=== PATIENT | female | born 1965 | race Caucasian/White ===

== ENCOUNTER 2025-07-19 08:22 | Outpatient (REF) | payer OTHER, SELFPAY ==
--- OUTSIDE RECORDS SUMMARY | 2016-11-19 01:00 | XMS_ITS | Encounter Summary ---
Author Organization [facility] Address [address] [place] [id number] Phone Care Team Providers [employer] Name Role Phone Quang Blake MD Primary Care Provider [phone] Encounter Details Date Type Department Care Team (Late st Contact Info) Description 11/19/2016 Hospital Encounter [facility] [address] [place] [address] Stephane Montes MD [address] [facility] [address] [place] [address] [email or web address] Social History Tobacco Use Types Packs/Day Years Used Date Smoking Tobacco: Every Day Cigarettes Comments:Quit smokin06/14 Education Answer Date Recorded Are you interested in more education? Not on jay e 02/12/2023 Are you concerned about learning? Not on file 02/12/2023 No 02/12/2023 No 02/12/2023 Digital Access Answer Date Recorded No 03/10/2023 No 03/10/2023 No 03/10/2023 Reliable internet access at home? Not on file 03/10/2023 Device with a working camera? Not on file Comments Unknown Sex and Gender Information Value Date Recorded Sex Assigned at Not on file Legal Sex Female 2:30 PM EST Gender Identity Not on file Sexual Orientation Not on file documented as of this encounter Plan of Treatment Not on file documented as of this encounter Procedures Procedure Name Priority Date/Time Associated Diagnosis Comments CT SPINE (BONE) OUTSIDE (NO INTERPRETATION) Routine 11/19/2016 12:00 AM EST documented in this encounter Results * CT Spine (Bone) Focus Outside (No Interpretation) (11/19/2016 12:00 AM EST) Narrative [facility] INTERFACES - 11/25/2016 1:16 PM EST This study is for PACS storage only and not for interpretation. us Stephane Montes MD IMG OUTSIDE IMAGING W/ OUT INTERPRETATION Final Result [facility] documented in this encounter Visit Diagnoses Not on filedocumented in this encounter Care Teams [employer] Relationship Specialty Start Date End Date Quang Blake MD [address] [place] [address] PCP - General Internal Medicine 12/06/14 10/13/17 documented as of this encounter Additional Source Comments The information contained in this document represents components of the legal health record. It is not the complete legal health record.[facility]
--- OUTSIDE RECORDS SUMMARY | 2025-07-20 08:39 | XMS_ITS ---
Author Name [facility] Organization Unknown History of Medication Use Medication Directions Dispensed Refills Start Date End Date Status prednisone 10 mg tablet 3 tabs QD x 4 days, 2 tabs QD x 4 days, 1 tab QD x 4 days 5 active Kenalog 40 mg/mL suspension for injection Take 1 mL by injection route. 3 active lidocaine (PF) 10 mg/mL (1 %) injection solution Take 2 mL by injection route. 3 active cephalexin 500 mg capsule TAKE ONE CAPSULE BY MOUTH THREE TIMES A DAY 05/18/20 23 completed doxycycline hyclate 100 mg capsule TAKE ONE CAPSULE BY MOUTH TWICE A DAY 05/18/20 23 completed Codoon COVID-19 Antigen Home Test kit USE DIRECTED PER DIRECTOR [employer] INSTRUCTIONS TO TEST FOR COVID-19 05/18/20 23 active fluticasone propionate 50 mcg/actuation nasal spray,suspension USE 1 SPRAY IN EACH NOSTRIL DAILY NEEDED 05/18/20 23 active nicotine 21 mg/24 hr daily transdermal patch APPLY 1 PATCH TO SKIN DAILY 05/18/20 23 active nitrofurantoin monohydrate/macrocrystal s 100 mg capsule TAKE ONE CAPSULE BY MOUTH EVERY 12 HOURS FOR 5 DAYS 05/18/20 23 completed tizanidine 4 mg tablet TAKE ONE TABLET BY MOUTH THREE TIMES A DAY 05/18/20 23 completed tretinoin 0.025 % topical cream APPLY AT BEDTIME THREE TIMES WEEKLY THEN INCREASE TO NIGHTLY IF TOLERATED 05/18/20 23 completed Vitamin D3 50 mcg (2,000 unit) capsule TAKE ONE CAPSULE BY MOUTH EVERY DAY 05/18/20 23 completed prednisone 10 mg tablet active acetaminophen 500 mg tablet TAKE TWO TABLETS BY MOUTH EVERY 8 HOURS active albuterol sulfate 2.5 mg/3 mL (0.083 %) solution for nebulization ONE VIAL NEBULIZED EVERY 6 HOURS NEEDED FOR WHEEZING active amlodipine 2.5 mg tablet TAKE ONE TABLET BY MOUTH EVERY DAY active amlodipine 5 mg tablet TAKE ONE TABLET BY MOUTH EVERY DAY active amoxicillin 500 mg capsule TAKE 4 CAPSULES BY MOUTH ONE HOUR PRIOR TO DENTAL APPOINTMENT active amoxicillin 875 mg tablet TAKE ONE TABLET BY MOUTH EVERY 12 HOURS FOR 5 DAYS active amoxicillin 875 mg-potassium clavulanate 125 mg tablet TAKE ONE TABLET BY MOUTH TWICE A DAY FOR 5 DAYS active ampicillin 500 mg capsule TAKE ONE CAPSULE BY MOUTH FOUR TIMES A DAY active Anoro Ellipta 62.5 mcg-25 mcg/actuation powder for inhalation INHALE ONE PUFF INTO THE LUNGS ONCE DAILY active Antacid-Antigas 200 mg-200 mg-20 mg/5 mL oral suspension active aspirin 325 mg tablet,delayed release TAKE ONE TABLET BY MOUTH EVERY DAY active atorvastatin 20 mg tablet TAKE ONE TABLET BY MOUTH EVERY DAY active azithromycin 250 mg tablet TAKE 2 TABLETS ON FIRST DAY , THEN 1 TABLET DAILY FOR 4 DAYS active cefuroxime axetil 250 mg tablet TAKE ONE TABLET BY MOUTH TWICE A DAY active celecoxib 200 mg capsule TAKE ONE CAPSUL E BY MOUTH EVERY DAY active cholecalciferol (vitamin D3) 125 mcg (5,000 unit) capsule TAKE ONE CAPSULE BY MOUTH EVERY DAY active cyclobenzaprine 5 mg tablet TAKE ONE TABLET BY MOUTH THREE TIMES A DAY active docusate sodium 100 mg capsule TAKE ONE CAPSULE BY MOUTH TWICE A DAY NEEDED FOR CONSTIPATION active duloxetine 60 mg capsule,delayed release TAKE ONE CAPSULE BY MOUTH TWICE A DAY active estradiol 0.01% (0.1 mg/gram) vaginal cream USE ONE GRAM VAGINALLY EVERY EVENING AT BEDTIME. USE FOR 14 DAYS THEN DECREASE TO TWICE WEEKLY active estradiol 10 mcg vaginal tablet INSERT ONE TABLET VAGINALLY EVERY OTHER DAY active fluconazole 150 mg tablet TAKE ONE TABLET BY MOUTH ONCE active gabapentin 600 mg tablet TAKE ONE TABLET BY MOUTH THREE TIMES A DAY active gabapentin 800 mg tablet TAKE ONE TABLET BY MOUTH THREE TIMES A DAY active hydrochlorothiazide 25 mg tablet TAKE ONE TABLET BY MOUTH EVERY DAY active hydromorphone 2 mg tablet TAKE ONE TABLET BY MOUTH TWICE A DAY NEEDED FOR SEVERE PAIN - DO NOT DRIVE WHILE TAKING THIS MEDICATION active hydromorphone 4 mg tablet TAKE 1 TABLET BY MOUTH EVERY 4 HOURS NEEDED FOR MODERATE PAIN active lisinopril 20 mg tablet TAKE ONE AND ONE-HALF TABLETS BY MOUTH ONCE DAILY active lisinopril 40 mg tablet TAKE ONE TABLET BY MOUTH EVERY DAY active meclizine 25 mg tablet TAKE ONE TABLET BY MOUTH THREE TIMES A DAY NEEDED FOR DIZZINESS active meloxicam 15 mg tablet TAKE ONE TABLET BY MOUTH EVERY DAY AFTER MEAL S) active metoprolol succinate ER 25 mg tablet,extended release 24 hr TAKE ONE TABLET BY MOUTH EVERY DAY active metronidazole 500 mg tablet TAKE ONE TABLET BY MOUTH TWICE A DAY active nicotine (polacrilex) 2 mg buccal lozenge DISSOLVE ONE LOZENGE MOUTH/THROAT EVERY 2 HOURS NEEDED FOR SMOKING CESSATION. MAX 20 LOZENGES PER DAY. DO NOT CHEW OR SWALLOW WHOLE active nystatin 100,000 unit/mL oral suspension SHAKE LIQUID AND TAKE 5 ML BY MOUTH FOUR TIMES DAILY FOR 14 DAYS RETAIN BY MOUTH LONG POSSIBLE BEFORE SWALLOWING active omeprazole 20 mg capsule,delayed release TAKE ONE CAPSULE BY MOUTH EVERY DAY active oxycodone 10 mg tablet TAKE ONE TABLET BY MOUTH EVERY 6 HOURS NEEDED FOR PAIN active oxycodone 15 mg tablet TAKE ONE TABLET BY MOUTH EVERY 6 HOURS NEEDED FOR PAIN active oxycodone 5 mg tablet TAKE ONE TABLET BY MOUTH EVERY 6 HOURS NEEDED FOR SEVERE PAIN active prednisone 20 mg tablet TAKE TWO TABLETS BY MOUTH EVERY DAY FOR 5 DAYS active Stiolto Respimat 2.5 mcg-2.5 mcg/actuation solution for inhalation TAKE 2 PUFFS EVERY 24 HOURS active trazodone 50 mg tablet TAKE ONE AND ONE-HALF TABLETS BY MOUTH AT BEDTIME active triamcinolone acetonide 0.1 % topical cream ONE APPLICATION THREE TIMES A DAY FOR 7 DAYS FOR ITCH active Ventolin HFA 90 mcg/actuation aerosol inhaler INHALE 1 PUFF BY MOUTH EVERY 4 HOURS NEEDED FOR WHEEZING active Wixela Inhub 250 mcg-50 mcg/dose powder for inhalation TAKE 1 PUFF TWO TIMES A DAY - RINSE MOUTH AND THROAT AFTER USE active Allergies Allergen Reaction Severity Comment Documented Date Source Statu s SULFA (SULFONAMIDE ANTIBIOTICS) [facility] Problems Problem Status Onset Date Problem Type Date of Resoluti on Source Osteoarthritis of left knee joint active 2023-05-19 ProblemAct [facility] 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 active 2025-03-30 ProblemAct [facility] Encounters Encounter Type Encounter Reason Primary Diagnosis Location Date [facility]2025 [facility] 04/02/2025 [facility] 03/30/2025 [facility] 03[facility]30/2025 [facility] 05/18/2023 [facility] 05/18/2023 [facility] 05/18/2023 [facility] 05/18/2023 [facility] 05/18/2023 [facility] 05[facility]18/2023 [facility] 05[facility]18/2023 [facility] 05/18/2023 [facility] 02/15/2023
--- OUTSIDE RECORDS SUMMARY | 2025-07-20 08:40 | XMS_ITS | Data Portability ---
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 She will continue her antibiotic prophylaxis. I do encourage her to increase the amount of stretching she does when she has stiffness. Follow-up visit regarding her right knee will be 5-year recall should she have any questions or concerns regarding this we will schedule her if needed. Regarding the left knee she has minimal arthritis however she is symptomatic at today's visit for which she opted for cortisone injection. After verbal consent was granted the procedure was carried out the left knee. Patient tolerated the procedure well. Aftercare instructions were discussed in detail. I would like to see her back in 3 months time for repeat clinical exam. Should she have any questions or concerns she should contact my office. The patient agrees with the above-noted plan. Indirect care and treatment in conjunction with Dr. Camacho Additional treatment plan discussed with the patient in detail included the following; - Provider focused nonsteroidal anti-inflammatory regimen (discussed were the pros, cons, benefits and risks as well as any black box warnings) in patients over 60 years old they should be very cautious in taking these medications due to potential decreased kidney function and or elevated blood pressure. - Analgesic pain medication for pain suppression (discussed were the pros, cons, benefits and risks as well as any black box warnings) - The use of topical pain relieving medication were discussed - The use of ice to decrease inflammation and pain - The use of assistive ambulatory devices for ambulation and fall prevention - Formal specific guided physical therapy program I reviewed my findings at length with the patient today. We discussed the nature and etiology of this problem along with current treatment options. We discussed the expected course and outcomes and what to expect. We also discussed risks and benefits. All of their questions were answered today, and there was exhibited understanding and comprehension of all that was discussed. Time Spent: 10 minutes were spent reviewing previous imaging and charting. 10 minutes were spent obtaining patient history. 5 minutes were spent on physical exam. 5minutes were spent explaining diagnosis and assessment. Today's documentation was made using voice recognition software. This note may contain grammatical errors secondary to the software. Not available 05/19/2023 07:54:24 03/30/2025 03/30/2025 HPI : Patient is here for pain regarding her right total knee replacement performed by Dr. Villela in 2020. She states she has had 2 months of pain. Prior to this she was not having significant pain. She states the pain is primarily in the medial aspect of the knee. There can be pain with weightbearing. She has trialed oxycodone, gabapentin, and ibuprofen with continued symptoms. Physical Exam : Patient is well nourished, well-developed, in no acute distress, with appropriate mood and affect. The patient is oriented to time, place, and person. Respirations are even and unlabored. There is no inguinal adenopathy. Examination of the contralateral knee shows normal range of motion, strength, no tenderness, and intact skin. The affected limb is well-perfused, with well healed skin incision. The patient demonstrates good knee motion, stability, and strength. Tender at the medial epicondylar area. No true tenderness at the proximal tibia. The knee moves from 0-130 degrees. The alignment of the knee is neutral. Muscle strength is normal. Pedal pulses are palpable. Hip examination, including flexion and internal rotation, was negative in that groin pain was not produced. Assessment/Plan : Patient is having pain next of right total knee replacement. Exam, imaging, and history do not show any signs of implant related issues including loosening, malposition, instability, periprosthetic fracture, or infection. ESR and CRP which I ordered before her visit are negative for infection. I am going to prescribe her an oral steroid which I think will help with soft tissue related pain which may be the cause of her symptoms. She will follow-up with me in 2 months for reevaluation if symptoms are not improving. We could consider advanced imaging at that time, bone scan versus MRI. Not available 03/30/2025 12:26:34 06/08/2025 06/08/2025 HPI : Patient is having continued pain next to a right total knee replacement performed by Dr. Hauser in 2020. At last visit 2 months ago I ordered ESR and CRP. This was negative for infection. I prescribed an oral steroid. This brought about 3 weeks of relief. The pain returned. Physical Exam : Patient is well nourished, well-developed, in no acute distress, with appropriate mood and affect. The patient is oriented to time, place, and person. Respirations are even and unlabored. There is no inguinal adenopathy. Examination of the contralateral knee shows normal range of motion, strength, no tenderness, and intact skin. The affected limb is well-perfused, with well healed skin incision. The patient demonstrates good knee motion, stability, and strength. Tender at the medial epicondylar area. No true tenderness at the proximal tibia. The knee moves from 0-130 degrees. The alignment of the knee is neutral. Muscle strength is normal. Pedal pulses are palpable. Hip examination, including flexion and internal rotation, was negative in that groin pain was not produced. Assessment/Plan : Patient has continued pain next a right total knee replacement. Exam, imaging, and history do not show any signs of implant related issues including loosening, malposition, instability, periprosthetic fracture, or infection. Given the persistent symptoms, I am going to order an MRI of the right knee. I think this is likely soft tissue related. I discussed with patient that I do not think there would be any surgical intervention required. Often times we treat muscular pain with NSAIDs and physical therapy. Patient was frustrated that we did not have a solution for pain. Patient preference was not to come in for follow-up visit after the MRI, and for us to let her know of the results. We will do that. Follow-up with us will be as needed. Not available 06/08/2025 13:09:43 Plan of Treatment Reminders Order Date Submit Date Provider Last Modified By Organization Details Last Modified Time Details Appointments None recorded. Lab None recorded. Referral None recorded. Procedures None recorded. Surgeries None recorded. Imaging MRI, knee, w/o contrast - Right knee pain next a right total knee replacement . M ARS protocolP lease call patient to schedule and hand carry CD 2024 025 [email or web address] [place], [address] [place], [address], 5 14:29:55 XR, knee, 3 view 2024 025 [facility], [address], [place], [address], 5 11:36:19 XR, knee, 1 or 2 view - Left Knee Pain 2022 023 [facility], [address], [place], [address], 3 12:08:52 XR, knee, 1 or 2 view - Right Knee Pain 2022 023 [facility], [address], [place], [address], 3 12:08:52 XR, knee, weightbeari ng - Bilateral Knee Pain 2022 023 [facility], [address], [place], [address], 3 12:08:52 Medication Orders prednisone 10 mg tablet 2024 025 [id number], [address] [place], [address], 5 15:50:11 Kenalog 40 mg/mL suspension for injection 2022 023 [email or web address], [address] [place], [address], 07:55:29 lidocaine (PF) 10 mg/mL (1 %) injection solution 2022 023 [email or web address], [address] [place], [address], 07:55:29 Patient TargetsNo targets recorded. Patient Instructions Encounter Date Encounter Id Patient Instructions Last Modified By Organization Details Last Modified Time 05/18/2023 [id number] You have been provided with a cortisone injection in order to reduce the pain and inflammation that you are experiencing. The injection consists of two medications. Cortisone (an anti-inflammatory that will take 48-72 hours to take effect) and Lidocaine (a numbing agent that will last 2-3 hours). Please note that not everyone will have a lasting response following the injection. PATIENT INSTRUCTIONS Once the Lidocaine wears off, you may have an increase in your pain. I recommend icing the affected area for 20 minutes 3-4 times per day. It is recommended that you refrain from any high level activities using the joint or limb that was injected for approximately 24-48 hours. Normal day-to-day activities are generally not a problem. POSSIBLE SIDE EFFECTS Individuals with dark complexions may experience some skin discoloration locally at the site of the injection. There is the possibility of an increase in discomfort within 48 hours following the injection. This is called a verónica núñez . To help minimize the chances of this, please see the post-injection instructions above. There is a less than 1% chance of an infection. If you notice any signs of infection (redness, warmth, drainage, fever greater than 100 degrees) please call our office or contact us through the portal [facility]. Not available 05/19/2023 07:55:03 Right total knee arthroplasty well-seated well-positioned no obvious signs of loosening no acute bony abnormality. Left knee x-ray with mild degenerative space narrowing without acute bony abnormality normal bone mineralization. Not available 05/19/2023 07:54:52 03/30/2025 [id number] AP, lateral, and patellar radiographs of the right knee taken today demonstrate satisfactory position and alignment of components following right total knee replacement. No signs of gross loosening. Not available 03/30/2025 12:26:24 Reason for Referral None Reported. Results Created Date Observation Date Name Description Value Unit Range Abnormal Flag Note LastModifiedBy Organization Detail LastModifiedTime Result Notes None recorded. 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 Procedures Surgical History Date Name Laterality Status Provider Name and Address Organization Details Recorded Time 3 Knee Joint/Bursa Asp & Inj completed SHEY SHEIKH PA-C [address], [place], [address], [place] [facility] 05/19/2023 07:53:12 total knee replacement completed [facility] 05/18/2023 15:37:00 Imaging Results None recorded. Procedure Notes None recorded. Medical Equipment None Reported. Allergies Allergen ID Allergen Name Allergen Category Reaction Reaction Severity Criticality Documentation Date Start Date Code Code System Note Provider Name and Address Organization Details Recorded Time 6730 Substance with sulfonami de structure and antibacte rial mechanism of action (substanc e) medicatio n Not available Not available Not available 05/18/2023 03669 8003 SNOMED [facility] [place] [facility] 3 15:27:28 11474 metronida zole medicatio n Not available Not available Not available 07/10/20252014 6922 RxNorm React ion: Other (See Comme nts), munir ity: Unkno wn Not Available [facility] 5 01:15:44 Medications Name Sig Start Date Stop Date Status Note LastModified by Organization Details LastModified Time lidoc/aller /antac SWISH 1 TEASPOONF UL FOUR TIMES A DAY DIRECTED 06/08 completed Not Available Not Available Not Available carisoprodo l 350 mg tablet carisopro dol 350 mg tablet active Not Available Not Available No t Available celecoxib 200 mg capsule TAKE ONE CAPSULE BY MOUTH EVERY DAY 06/08 completed Not Available Not Available Not Available amoxicillin 500 mg capsule TAKE 4 CAPSULES BY MOUTH ONE HOUR PRIOR TO DENTAL APPOINTME NT 06/08 completed Not Available Not Available Not Available bupropion HCl SR 150 mg tablet,12 hr sustained-r elease TAKE ONE TABLET BY MOUTH EVERY MORNING FOR 3 DAYS THEN INCREASE TAKE ONE TABLET BY MOUTH TWICE A DAY 2020 active Not Available Not Available Not Avai lable nystatin 100,000 unit/mL oral suspension TAKE 4ML BY MOUTH FOUR TIMES A DAY FOR 14 DAYS; SWISH IN THE MOUTH AND RETAIN FOR LONG POSSIBLE SEVERAL MINUTES) BEFORE SWALLOWIN G active Not Available Not Available No t Available prednisone 10 mg tablet TAKE THREE TABLETS BY MOUTH EVERY DAY FOR 4 DAYS, THEN TAKE TWO TABLETS BY MOUTH EVERY DAY FOR 4 DAYS, THEN TAKE ONE TABLET BY MOUTH EVERY D 06/08 completed Not Available Not Available Not Available gabapentin 600 mg tablet TAKE ONE TABLET BY MOUTH THREE TIMES A DAY 06/08 completed Not Available Not Available Not Available doxycycline hyclate 100 mg capsule TAKE ONE CAPSULE BY MOUTH TWICE A DAY 05/18 completed Not Available Not Available Not Available paroxetine 10 mg tablet paroxetin e 10 mg tablet active Not Available Not Available No t Available cefuroxime axetil 250 mg tablet TAKE ONE TABLET BY MOUTH TWICE A DAY 06/08 completed Not Available Not Available Not Available atorvastati n 20 mg tablet TAKE ONE TABLET BY MOUTH EVERY DAY active Not Available Not Available No t Available albuterol sulfate 2.5 mg/3 mL (0.083 %) solution for nebulizatio n ONE VIAL NEBULIZED EVERY 6 HOURS NEEDED FOR WHEEZING active Not Available Not Available No t Available trazodone 50 mg tablet TAKE ONE AND ONE-HALF TABLETS BY MOUTH AT BEDTIME active Not Available Not Available No t Available azithromyci n 250 mg tablet TAKE 2 TABLETS ON FIRST DAY , THEN 1 TABLET DAILY FOR 4 DAYS 06/08 completed Not Available Not Available Not Available tizanidine 4 mg tablet TAKE ONE TABLET BY MOUTH THREE TIMES A DAY 05/18 completed Not Available Not Available Not Available fluconazole 150 mg tablet TAKE 1 TABLET BY MOUTH ONCE. MAY REPEAT IN 72 HOURS IF STILL HAVING SYMPTOMS active Not Available Not Available No t Available ampicillin 500 mg capsule TAKE ONE CAPSULE BY MOUTH FOUR TIMES A DAY 06/08 completed Not Available Not Available Not Available tretinoin 0.025 % topical cream APPLY AT BEDTIME THREE TIMES WEEKLY THEN INCREASE TO NIGHTLY IF TOLERATED 05/18 completed Not Available Not Available Not Available meloxicam 15 mg tablet TAKE ONE TABLET BY MOUTH EVERY DAY AFTER MEAL S) active Not Available Not Available No t Available lisinopril 20 mg tablet TAKE ONE AND ONE-HALF TABLETS BY MOUTH ONCE DAILY active Not Available Not Available No t Available prednisone 20 mg tablet TAKE TWO TABLETS BY MOUTH EVERY DAY FOR 5 DAYS active Not Available Not Available No t Available sennosides 8.6 mg-docusate sodium 50 mg tablet Take 2 tablets by mouth every night at bedtime. 2020 active Not Available Not Available Not Avai lable amlodipine 2.5 mg tablet TAKE ONE TABLET BY MOUTH EVERY DAY 06/08 completed Not Available Not Available Not Available metronidazo le 500 mg tablet TAKE ONE TABLET BY MOUTH TWICE A DAY FOR 7 DAYS 06/08 completed Not Available Not Available Not Available amlodipine 5 mg tablet TAKE ONE TABLET BY MOUTH EVERY DAY active Not Available Not Available No t Available tramadol 50 mg tablet Take 50 mg by mouth every 6 (six) hours as needed. 09/16 completed Not Available Not Available Not Available acetaminoph en 500 mg tablet TAKE TWO TABLETS BY MOUTH EVERY 8 HOURS active Not Available Not Available No t Available triamcinolo ne acetonide 0.1 % topical cream ONE APPLICATI ON THREE TIMES A DAY FOR 7 DAYS FOR ITCH active Not Available Not Available No t Available amoxicillin 500 mg tablet Take 4 tabs 1 hour prior to dental appointme nt 2020 active Not Available Not Available Not Avai lable oxycodone 15 mg tablet TAKE ONE TABLET BY MOUTH EVERY 6 HOURS NEEDED FOR SEVERE PAIN active Not Available Not Available No t Available Kenalog 40 mg/mL suspension for injection Take 1 mL by injection route. 2022 active Not Available Not Available Not Avai lable amoxicillin 875 mg tablet TAKE ONE TABLET BY MOUTH EVERY 12 HOURS FOR 5 DAYS 06/08 completed Not Available Not Available Not Available hydromorpho ne 2 mg tablet TAKE ONE TABLET BY MOUTH TWICE A DAY NEEDED FOR SEVERE PAIN - DO NOT DRIVE WHILE TAKING THIS MEDICATIO N 06/08 completed Not Available Not Available Not Available lorazepam 0.5 mg tablet Take 0.5 mg by mouth daily as needed. 2021 active Not Available Not Available Not Avai lable aspirin 325 mg tablet,monique yed release TAKE ONE TABLET BY MOUTH EVERY DAY active Not Available Not Available No t Available gabapentin 800 mg tablet TAKE ONE TABLET BY MOUTH THREE TIMES A DAY active Not Available Not Available No t Available meclizine 25 mg tablet TAKE ONE TABLET BY MOUTH THREE TIMES A DAY NEEDED FOR DIZZINESS active Not Available Not Available No t Available cephalexin 500 mg capsule TAKE ONE CAPSULE BY MOUTH THREE TIMES A DAY 05/18 completed Not Available Not Available Not Available indomethaci n 50 mg capsule Take 50 mg by mouth 2 (two) times a day with meals. 2020 active Not Available Not Available Not Avai lable nicotine 21 mg/24 hr daily transdermal patch APPLY 1 PATCH TO SKIN DAILY active Not Available Not Available No t Available docusate sodium 100 mg capsule TAKE ONE CAPSULE BY MOUTH TWICE A DAY NEEDED FOR CONSTIPAT ION active Not Available Not Available No t Available omeprazole 20 mg capsule,del ayed release TAKE ONE CAPSULE BY MOUTH EVERY DAY active Not Available Not Available No t Available diclofenac sodium 75 mg tablet,monique yed release diclofena c sodium 75 mg tablet,de layed release active Not Available Not Available No t Available hydroxyzine HCl 25 mg tablet TAKE ONE TABLET BY MOUTH THREE TIMES A DAY NEEDED FOR ITCHING 2021 active Not Available Not Available Not Avai lable hydrochloro thiazide 25 mg tablet TAKE ONE TABLET BY MOUTH EVERY DAY 06/08 completed Not Available Not Available Not Available metoprolol succinate ER 25 mg tablet,exte nded release 24 hr TAKE ONE TABLET BY MOUTH EVERY DAY active Not Available Not Available No t Available ibuprofen 600 mg tablet Take 1 tablet by mouth every 6 (six) hours as needed. 2016 active Not Available Not Available Not Avai lable estradiol 0.01% (0.1 mg/gram) vaginal cream USE ONE GRAM VAGINALLY EVERY EVENING AT BEDTIME. USE FOR 14 DAYS THEN DECREASE TO TWICE WEEKLY 06/08 completed Not Available Not Available Not Available hydromorpho ne 4 mg tablet TAKE 1 TABLET BY MOUTH EVERY 4 HOURS NEEDED FOR MODERATE PAIN 06/08 completed Not Available Not Available Not Available lisinopril 40 mg tablet TAKE ONE TABLET BY MOUTH EVERY DAY active Not Available Not Available No t Available fluticasone propionate 50 mcg/actuati on nasal spray,suspe nsion USE 1 SPRAY IN EACH NOSTRIL DAILY NEEDED active Not Available Not Available No t Available cholecalcif sharlene (vitamin D3) 125 mcg (5,000 unit) capsule TAKE ONE CAPSULE BY MOUTH EVERY DAY active Not Available Not Available No t Available amoxicillin 875 mg-potassiu m clavulanate 125 mg tablet TAKE ONE TABLET BY MOUTH TWICE A DAY FOR 5 DAYS 06/08 completed Not Available Not Available Not Available Ventolin HFA 90 mcg/actuati on aerosol inhaler INHALE 1 PUFF BY MOUTH EVERY 4 HOURS NEEDED FOR WHEEZING 06/08 completed Not Available Not Available Not Available oxycodone 5 mg tablet TAKE ONE TABLET BY MOUTH EVERY 4 TO 6 HOURS NEEDED 06/08 completed Not Available Not Available Not Available estradiol 0.025 mg/24 hr semiweekly transdermal patch See Instructi ons, 1 patch Topically Every Wednesday and , # 8 patch, 3 Refills, Giovani ce, 01/30/19 12:41:54 EDT 2018 active Not Available Not Available Not Avai lable nicotine (polacrilex ) 2 mg buccal lozenge DISSOLVE ONE LOZENGE MOUTH/THR OAT EVERY 2 HOURS NEEDED FOR SMOKING CESSATION . MAX 20 LOZENGES PER DAY. DO NOT CHEW OR SWALLOW WHOLE active Not Available Not Available No t Available cyclobenzap rine 5 mg tablet TAKE ONE TABLET BY MOUTH THREE TIMES A DAY active Not Available Not Available No t Available Jantoven 1 mg tablet Take 2 mg by mouth daily. 2020 active Not Available Not Available Not Avai lable nitrofurant oin monohydrate /macrocryst als 100 mg capsule TAKE ONE CAPSULE BY MOUTH TWICE A DAY 06/08 completed Not Available Not Available Not Available duloxetine 60 mg capsule,del ayed release TAKE ONE CAPSULE BY MOUTH TWICE A DAY active Not Available Not Available No t Available lidocaine (PF) 10 mg/mL (1 %) injection solution Take 2 mL by injection route. 2022 active Not Available Not Available Not Avai lable oxycodone 10 mg tablet TAKE ONE TABLET BY MOUTH EVERY 6 HOURS NEEDED FOR PAIN 06/08 completed Not Available Not Available Not Available estradiol 10 mcg vaginal tablet INSERT ONE TABLET VAGINALLY EVERY OTHER DAY active Not Available Not Available No t Available ProChamber USE DIRECTED WITH INHALER active Not Available Not Available No t Available Vitamin D3 50 mcg (2,000 unit) capsule TAKE ONE CAPSULE BY MOUTH EVERY DAY 05/18 completed Not Available Not Available Not Available Antacid-Ant igas 200 mg-200 mg-20 mg/5 mL oral suspension 06/08 completed Not Available Not Available Not Available Anoro Ellipta 62.5 mcg-25 mcg/actuati on powder for inhalation INHALE ONE PUFF INTO THE LUNGS ONCE DAILY active Not Available Not Available No t Available Stiolto Respimat 2.5 mcg-2.5 mcg/actuati on solution for inhalation TAKE 2 PUFFS EVERY 24 HOURS active Not Available Not Available No t Available duloxetine 40 mg capsule,del ayed release TAKE ONE CAPSULE BY MOUTH EVERY DAY. DO NOT CRUSH OR CHEW. 2020 active Not Available Not Available Not Avai lable naloxone 4 mg/actuatio n nasal spray spray or apply 4 mg inside Nose once for 1 dose. May repeat dose q. 2 to 3 minutes until patient responsiv eness or EMS arrives 09/17 completed Not Available Not Available Not Available Wixela Inhub 250 mcg-50 mcg/dose powder for inhalation TAKE 1 PUFF TWO TIMES A DAY - RINSE MOUTH AND THROAT AFTER USE active Not Available Not Available No t Available Flowflex COVID-19 Antigen Home Test kit USE DIRECTED PER [employer] TO TEST FOR COVID-19 06/08 completed Not Available Not Available Not Available Vitals Date Recorded Body height Body mass index (BMI) Body weight Provider Name and Address Organization Details Last Updated DateTime 03/30/2025 149.86 cm 20 kg/m2 [address] [place] [facility] 03/30/2025 11:07:15 Date Recorded Body height Body mass index (BMI) Body weight Provider Name and Address Organization Details Last Updated DateTime 05/18/2023 149.86 cm 21.6 kg/m2 [address] [place] [facility] 05/18/2023 15:31:03 Date Recorded Body height Body mass index (BMI) Body weight Provider Name and Address Organization Details Last Updated DateTime 06/08/2025 149.86 cm 20 kg/m2 70477.64 g Avani Zepeda [facility] 06/08/2025 12:46:26 Social History Question Answer Notes LastModified by [facility] Details LastModified Time Tobacco Smoking Status Current Every Day Smoker [facility] [facility] [place] [facility] 05/18/2023 15:32:07 Are You Deaf Or Do You Have Serious Difficulty Hearing? Yes Information not available 05/18/2023 How Much Tobacco Do You Smoke? 1 PPD Information not available 05/18/2023 Sex: Unknown Functional Status Question Answer Note LastModified by [employer] Details LastModified Time Do you use any illicit or recreational drugs? No Information not available 05/18/2023 Do you or have you ever used any other forms of tobacco or nicotine? No Information not available 05/18/2023 What is your level of alcohol consumption? None Information not available 05/18/2023 Mental Status None recorded. Family History Relationship Description Onset Age of this Age Resolved Age Notes LastModified by Organization Details LastModified Time Mother Arthritis Not available 05/18/2023 15:34:27 Mother Heart disease Not available 2022 15:34:43 Father Arthritis Not available 05/18/2023 15:34:27 Father Heart disease Not available 2022 15:34:43 Brother Hypertensive disorder Not available 2022 15:34:50 Brother Hypercholest erolemia Not available 2022 15:35:03 Notes:RHEUMATOLOGIC DISORDER -MOTHER Medical History Condition Response Rheumatoid Arthritis Y Osteoporosis Y Gynecological HistoryNo gynecological history recorded. Obstetrics History GPAL:G 0 P 0 0 0 0 Past Encounters Encounter ID Performer Location Encounter Start Date Encounter Closed Date Diagnosis/Indication Diagnosis SNOMED-CT Code Diagnosis ICD10 Code Diagnosis IMO Codes Diagnosis Note [id number] CASTRO MCDANIEL [employer] [address] [facility] [place] [address] 05/18/2023 15:10:03 05/18/2023 15:58:35 Pain of bilateral knee joints 2490194809 00985 M25.561 M25.562 Osteoarthr itis of left knee joint [id number] 51725 M17.12 [id number] MD DEMI Sepulveda [employer] [address] [place] [address] 03/30/2025 10:40:43 03/30/2025 11:31:58 Pain of knee region 1575815227 M25.561 G89.29 [id number] RIGHT KNEE PAIN Pain assoc iated with prosthesis of knee joint 162235681 T84.84XA Z96.651 [id number] MD DEMI Sepulveda [employer] [address] [place] [address] 06/08/2025 12:41:57 06/08/2025 13:05:40 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 [id number] T84.84XA Z96.651 [id number] Health Concerns Section Related Observation LastModified by Organization Detai ls LastModified Time None Recorded Concern Status LastModified by Organization Details LastModified Time None Recorded Advance Directives Directive None Recorded Payers Insurance Date Sequence Insurance Name Policy Number Policy Elizondo Covered Member ID Elizondo Member ID Guarantor Name 06/11/2025 1 [facility]INT [facility] - DOS ON OR AFTER 2023 - MEDICARE ADVANTAGE [place] REPLACEMENT/ADV ANTAGE - PPO) Rafaela Marie Oswaldo [id number] Rafaela Chacon Notes Date Note Type Note Provider Name and Address Organization Details Recorded Time 05/18/2023 text/html This is a pleasant 58-year-old female here for evaluation of ongoing left knee pain for which she describes as medial in nature. This has been getting worse over quite some time however more noticeable within the last 2 weeks. She denies any injury. She takes [id number] pain medication for symptomatic relief. She denies swelling or warmth overlying the left knee joint here for evaluation treatment. She also has a history of right total knee arthroplasty that was performed by Dr. Hauser in July 2021. She states that she is not having any problems with her knee replacement but she does admit she does not perform her stretching exercises.. SHEY SHEIKH PA-C [address] [place] [address], [id number], [place] - [facility] 05/19/2023 07:56:06 OBGyn Episode No OBEpisode recorded.
--- OUTSIDE RECORDS SUMMARY | 2025-07-20 08:40 | XMS_ITS | Clinical Summary ---
Author Organization [facility] Address [address] [place] [id number] Phone Care Team Providers Care Weekend Anchor Name Role Phone Quang Blake MD Primary Care Provider Allergies Active Allergy Reactions Criticality Noted Date Comments Flagyl (Metronidazole) Unknown 05/21/2015 Sulfa (Sulfonamide Antibiotics) Unknown 01/2015 Medications traMADol (ULTRAM) 50 mg tablet Take 1 tablet (50 mg total) by mouth every 6 (six) hours as needed for pain (specific location in comments). 150 tablet 12/11/2016 Active ibuprofen (ADVIL,MOTRIN) 600 MG tablet TAKE ONE TABLET BY MOUTH EVERY 6 HOURS NEEDED FOR PAIN 240 tablet 3 06/28/2017 Active Social History Tobacco Use Types Packs/Day Years [...] on file Sexual Orientation Not on file Last Filed Vital Signs Vital Sign Reading Time Taken Comments Blood Pressure 129/86 06/26/2015 10:11 AM EDT Pulse 105 06/26/2015 10:11 AM EDT Temperature 36.7 C (98.1 F) 06/26/2015 10:11 AM EDT Respiratory Rate - - Oxygen Saturation 96% 06/26/2015 12:00 AM EDT Inhaled Oxygen Concentration - - Weight 49.1 kg (108 lb 3.2 oz) 06/26/2015 12:00 AM EDT Height 149.9 cm (4' 11 ) 06/26/2015 12:00 AM EDT Body Mass Index 21.85 06/26/2015 12:00 AM EDT Plan of Treatment Health Maintenance Due Date Last Done Comments Adult Td,Tdap Booster 1963 LIPID PANEL 1963 DEPRESSION SCREENING 1975 SMOKING Hx and SMOKELESS TOBACCO SCREENING 1976 HEPATITIS C SCREENING 1981 HIV ONE-TIME SCREENING (18-6 5 YEARS) 1981 PNEUMOCOCCAL VACCINES (50+ years) (1 of 2 - PCV) 1982 PAP SMEAR 1984 MAMMOGRAM 2003 COLOGUARD 2008 COLONOSCOPY 2008 COLORECTAL CANCER SCREENING 2008 FIT TEST 2008 FOBT 2008 SIGMOIDOSCOPY 2008 VIRTUAL COLONOSCOPY 2008 ZOSTER VACCINES (1 of 2) 2013 INFLUENZA VACCINE (#1) 2025 07/29/2021 COVID-19 VACCINE (3 - 2024-2 6 season) 2025 02/14/2021, 01/23/2021 RSV VACCINE (1 - 1-dose 75+ series) 2038 HEPATITIS A VACCINES Aged Out No long er eligible based on patient's age to complete this topic HIB VACCINES Aged Out No longer eligi ble based on patient's age to complete this topic MENINGOCOCCAL VACCINES (ACWY) Aged Out No longer eligible based on patient's age to complete this topic MENINGOCOCCAL VACCINES (B) Aged Out N o longer eligible based on patient's age to complete this topic Medical Devices Not on file Insurance MEDICARE REPLACEMENT MEDICARE REPLACEMENT MEDICARE REPLACEMENT MEDICARE REPLACEMENT MEDICARE REPLACEMENT MEDICARE REPLACEMENT MEDICARE REPLACEMENT MEDICARE REPLACEMENT Care Teams Weekend Anchor Relationship Specialty Start Date End Date Quang Blake MD [address] [facility] [place] [address] PCP - General Internal Medicine 10/14/17 Additional Source Comments The information contained in this document represents components of the legal health record. It is not the complete legal health record.[facility]
--- OUTSIDE RECORDS SUMMARY | 2025-07-20 08:40 | XMS_ITS | Clinical Summary ---
Author Organization [facility] Address [address] [place] [address] Care Team Providers Care Mannequin Decorator Name Role Phone Caity Humphrey NP Primary Care Provider [phone] Allergies Active Allergy Reactions Criticality Noted Date Comments Metronidazole Other (See Comments) 05/21/2015 Sulfa Antibiotics Other (See Comments) 05/21/20 15 Medications Medication Sig Dispensed Refills Start Date End Date Status metoprolol succinate (TOPROL-XL) 24 hr tablet 25 mg TAKE ONE TABLET BY MOUTH EVERY DAY 0 05/03/2021 Active DULoxetine HCl 40 MG CPEP TAKE ONE CAPSULE BY MOUTH EVERY DAY. DO NOT CRUSH OR CHEW. 0 06/09/2021 Active albuterol 108 (90 Base) MCG/ACT inhaler 2 puffs every 6 (six) hours as needed. for wheezing 0 03/26/2021 Active atorvastatin (LIPITOR) tablet 20 mg TAKE ONE TABLET BY MOUTH EVERY DAY 0 06/15/2021 Active buPROPion (WELLBUTRIN SR) 150 MG 12 hr tablet TAKE ONE TABLET BY MOUTH EVERY MORNING FOR 3 DAYS THEN INCREASE TAKE ONE TABLET BY MOUTH TWICE A DAY 0 06/18/2021 Active Cholecalciferol (Vitamin D3) 50 MCG (2000 UT) capsule Take by mouth daily. 0 05/07/2021 Acti ve fluticasone (FLONASE) 50 MCG/ACT nasal spray USE 1 SPRAY IN EACH NOSTRIL DAILY NEEDED FOR WHEEZING/SHORTNESS OF BREATH 0 06/15/2021 Active omeprazole (PriLOSEC) 20 MG capsule Take 20 mg by mouth daily. 0 06/15/2021 Active indomethacin (INDOCIN) 50 MG capsule Take 50 mg by mouth 2 (two) times a day with meals. 0 04/11/2021 Active ibuprofen 600 MG tablet Take 1 tablet by mouth every 6 (six) hours as needed. 0 06/28/2017 Active gabapentin (NEURONTIN) 600 MG tablet Take 600 mg by mouth 3 (three) times a day. 0 06/15/2021 Active hydroCHLOROthiazid e (HYDRODIURIL) tablet 25 mg TAKE ONE TABLET BY MOUTH EVERY DAY 0 06/15/2021 Active predniSONE (DELTASONE) tablet 10 mg TAKE ONE TABLET BY MOUTH TWICE A DAY FOR 5 DAYS 0 03/25/2021 Active traZODone (DESYREL) 50 MG tablet Take 50 mg by mouth every night at bedtime. 0 06/07/2021 Active LISINOPRIL PO Take by mouth. 0 Active carisoprodol (SOMA) 350 MG tablet carisoprodol 350 mg tablet 0 Active diclofenac (VOLTAREN) 75 MG EC tablet diclofenac sodium 75 mg tablet,delayed release 0 Active PARoxetine (PAXIL) 10 MG tablet paroxetine 10 mg tablet 0 Active amoxicillin (AMOXIL) 500 MG tablet Take 4 tabs 1 hour prior to dental appointment 20 tablet 3 09/23/2021 Active acetaminophen (TYLENOL EXTRA STRENGTH) 500 MG tablet TAKE TWO TABLETS BY MOUTH EVERY 8 HOURS 0 09/10/2021 Active Narcan 4 MG/0.1ML LIQD SPRAY INSIDE OF NOSE ONCE FOR 1 DOSE. MAY REPEAT DOSE EVERY 2-3 MINUTES UNTIL PATIENT RESPONSIVESS OR EMS ARRIVES 0 09/16/2021 Active Stool Softener Plus Laxative 8.6-50 MG Take 2 tablets by mouth every night at bedtime. 0 09/10/2021 Active Jantoven 1 MG tablet Take 2 mg by mouth daily. 0 09/10/2021 Active HYDROmorphone (Dilaudid) 2 MG tablet 1-2 tabs p.o. every 10-12 hours as needed for pain. May fill for lesser quantity. Nasal Narcan has been prescribed to the patient for precaution 24 tablet 0 10/24/2021 Active estradiol (VIVELLE-DOT) 0.025 MG/24HR See Instructions, 1 patch Topically Every Wednesday and , # 8 patch, 3 Refills, Maintenance, 01/30/19 12:41:54 EDT 0 01/30/2019 Active nicotine (NICODERM CQ) 21 MG/24HR Apply topically. 0 08/30/2020 Acti ve tiZANidine (ZANAFLEX) 4 MG tablet Take 4 mg by mouth 3 (three) times a day. 0 10/30/2021 Active oxyCODONE (ROXICODONE) 5 MG immediate release tablet TAKE ONE TABLET BY MOUTH EVERY 6 HOURS NEEDED FOR SEVERE PAIN 0 11/25/2021 Active hydrOXYzine (ATARAX) 25 MG tablet TAKE ONE TABLET BY MOUTH THREE TIMES A DAY NEEDED FOR ITCHING 0 02/13/2022 Active lisinopril (PRINIVIL,ZESTRIL) tablet 40 mg TAKE ONE TABLET BY MOUTH EVERY DAY 0 01/25/2022 Active LORazepam (ATIVAN) 0.5 MG tablet Take 0.5 mg by mouth daily as needed. 0 12/11/2021 Active Active Problems Problem Noted Date Diagnosed Date Chronic knee pain after tota l replacement of right knee joint 11/28/2021 Family History Medical History Relation Name Comments Arthritis Father Arthritis Mother Heart disease Mother Relation Name Status Comments Father Mother Social History Tobacco Use Types Packs/Day Years Used Date Smoking Tobacco: Never Smokeless Tobacco: Never Alcohol Use Standard Drinks/Week Comments Never 0 (1 standard drink = 0.6 oz pur e alcohol) Sex and Gender Information Value Date Recorded Sex Assigned at Not on file Gender Identity Not on file Sexual Orientation Not on file Job Start Date Occupation Industry Not on file Not on file Not on file Last Filed Vital Signs Vital Sign Reading Time Taken Comments Blood Pressure - - Pulse - - Temperature - - Respiratory Rate - - Oxygen Saturation - - Inhaled Oxygen Concentration - - Weight 48.1 kg (106 lb) 08/19/2021 1:30 PM EDT Height 149.9 cm (4' 11 ) 08/19/2021 1:30 PM EDT Body Mass Index 21.41 08/19/2021 1:30 PM EDT Plan of Treatment Health Maintenance Due Date Last Done Comments Hepatitis C Screening 1965 Depression Screening 1975 Preventative Health Evaluation 1981 DTap / Tdap / Td (1 - Tdap) 1982 Cervical Cancer Screening (Pap Smear) 1984 Colon Cancer Screening (Colonoscopy) 2008 Breast Cancer Screening (Mammogram) 2013 Shingrix-Zoster Vaccine (1 of 2) 2013 COVID-19 Vaccine ( season) 2025 02/14/2021, 01/23/2021 Influenza Vaccine (#1) 2025 , 07/29/2021, 08/09/2020, Additional history exists RSV Adult > 60+ Yrs or (1 - 1-dose 75+ series) 2038 Pneumococcal Vaccine Aged Out 01/13/2019, 07/01/20 14 No longer eligible based on patient's age to complete this topic Hepatitis B Vaccines Aged Out No long er eligible based on patient's age to complete this topic RSV Ped < 20 months Aged Out No longe r eligible based on patient's age to complete this topic Care Teams Mannequin Decorator Relationship Specialty Start Date End Date Caity Humphrey NP [address] [place] [address] [place] [address] PCP - General Family Medicine 07/01/21
--- OUTSIDE RECORDS SUMMARY | 2025-07-20 08:40 | XMS_ITS | Data Portability ---
Author Organization [place] - [facility], Allergy Address [address] [address] Care Team Providers Care Environmental Control Administrator Name Role Phone RAFITA RODRIGES Primary Care Provider Assessment Encounter Date Assessment Date Assessment LastModified by Organization Details LastModified Time 03/24/2024 03/24/2024 The patient is doing well following parotidectomy. The JULIENNE drain was removed today without difficulty. The patient was instructed to call the office for increased swelling, fever, tenderness, or drainage. Wound care was discussed. I recommended avoidance of strenuous activity, heavy lifting or straining for 2 weeks. Pathology consistent with Warthin tumor. Follow up as scheduled. All questions were answered. [email or web address] Not available 03/24/2024 12:50:27 03/29/2024 03/29/2024 The patient continues to do well following parotidectomy. Incision is healing well. She will follow-up in 1 month as scheduled. Patient also presents for cerumen removal. Cerumen impaction removed bilaterally. Follow-up as needed. 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 The areas of concern are benign and do not represent any metastatic disease or infection. I encouraged her to use sunscreen on the area of her incision to minimize scar development or discoloration. The area above her right eye I believe is age-related changing to her orbit. She may have consultation with plastic surgery if she wishes to have that corrected but that is beyond my practice scope [email or web address] Not available 04/18/2024 15:41:55 Plan of Treatment Reminders Order Date Submit Date Provider Last Modified By Organization Details Last Modified Time Details Appointments None record ed. Lab None record ed. Referral None record ed. Procedures None record ed. Surgeries None record ed. Imaging None record ed. Medication Orders None record ed. Patient TargetsNo targets recorded. Patient InstructionsNo instructions recorded. Reason for Referral None Reported. Results Created Date Observation Date Name Description Value Unit Range Abnormal Flag Note LastModifiedBy Organization Detail LastModifiedTime 06/07/20 24 10/27/2019 imagi ng/di agnos tic resul t No observ ation record ed. [email or web address] Not Available 21:06:52 06/07/20 24 12/30/2022 imagi ng/di agnos tic resul t No observ ation record ed. [email or web address] Not Available 21:06:53 06/07/20 24 04/16/2023 imagi ng/di agnos tic resul t No observ ation record ed. [email or web address] Not Available 21:07:05 06/07/20 24 04/16/2023 imagi ng/di agnos tic resul t No observ ation record ed. [email or web address] Not Available 21:07:09 06/07/20 24 04/16/2023 imagi ng/di agnos tic resul t No observ ation record ed. [email or web address] Not Available 21:07:10 Result Notes None recorded. Problems Name Problem SNOMED Code Status Onset Date Resolution Date Notes Provider Name and Address Organization Details Recorded Time Impacted cerumen 96084156 Active 2014 Impacted cerumen; Note: Date Diagnosed : 11/09/2014 11:47 AM (380.4) Note: Date Diagnosed : 11/09/2014 11:47 AM (380.4) Not Available [facility] 4 00:57:42 Chronic rhinitis 67738059 Active 2014 Rhinitis, chronic; Note: Date Diagnosed : 11/09/2014 11:48 AM (472.0) Not Available [facility] 4 02:14:15 Otalgia of right ear 8984115651 Active 2016 Otalgia, right ear; Note: Changed from H92.02 to H92.01 ( 7 12:31 PM) , Date Diagnosed : 06/25/2017 3:35 PM (H92.02) Not Available [facility] 4 02:14:13 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; Note: Date Diagnosed : 06/25/2017 3:41 PM (D37.030) Not Available [facility] 4 02:14:23 Pain of left temporoma ndibular joint 17017020628 646137 Active 2016 Arthralgi a of left temporoma ndibular joint; Note: Date Diagnosed : 06/25/2017 3:44 PM (M26.622) Not Available [facility] 4 02:14:01 Bilateral tinnitus 25162800997 02 Active 2017 Tinnitus, bilateral ; Note: Date Diagnosed : 10/26/2017 10:41 AM (H93.13) Not Available [facility] 4 02:14:22 Sensorine ural hearing loss of bilateral ears 472288864 Active 2017 Sensorine ural HL, bilateral ; Note: Date Diagnosed : 11/09/2014 11:09 AM (389.18) ; Start Date : 5 Sensori neural hearing loss, bilateral ; Note: Date Diagnosed : 12/10/2017 1:08 PM (H90.3) Not Available [facility] 4 02:14:07 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 [place], [address] , [facility] - [facility] 4 14:41:55 Headache 20347384 Active 2019 Headache; Note: Date Diagnosed : 11/14/2019 8:57 AM (R51) Not Available [facility] 4 02:14:07 Tobacco dependenc e caused by cigarette s 09230447087 789746 Active 2019 Nicotine dependenc e, cigarette s, uncomplic ated; Note: Date Diagnosed : 11/14/2019 8:57 AM (F17.210) Not Available Critical [facility] hospital 4 02:14:15 Impacted cerumen 92603255 Active [id number] KAYLIN MCKEE PA-C [address] [place] [address],[place] [address], [place], [address] , [facility] 4 13:10:41 Problem Notes None recorded. Procedures Surgical History Date Name Laterality Status Provider Name and Address Organization Details Recorded Time 03/29/20 24 Cerumen removal without microscope bilat completed KAYLIN MCKEE PA-C [address] [place] [address],[address], [address], [facility] 03/29/2024 13:10:20 03/22/20 24 superficial parotidectomy completed AMARA JUAREZ MD [address] [place] [address],[address], [address], [facility] 04/18/2024 14:40:37 Imaging Results None recorded. Procedure Notes None recorded. Medical Equipment None Reported. Medications Name Sig Start Date Stop Date Status Note LastModified by Organization Details LastModified Time lidoc/all er/antac SWISH 1 TEASPOON FUL FOUR TIMES A DAY DIRECTED 04/18 completed Not Available Not Available Not Available carisopro dol 350 mg tablet 04/16 completed Medicati on ID: [id number] Du ration Value: 30 Brand Name: carisopr odol Sen d Method: E-Prescr ibed Sub s Allowed: subs OK Medic ationGen ericName : carisopr odol Not Available Not Available Not Available nystatin 100,000 unit/mL oral suspensio n TAKE FIVE MLS MOUTH/TH ROAT FOUR TIMES A DAY FOR 7 DAYS SWISH AND SWALLOW 04/18 completed Not Available Not Available Not Available gabapenti n 600 mg tablet TAKE ONE TABLET BY MOUTH THREE TIMES A DAY active Not Available Not Available No t Available cefuroxim e axetil 250 mg tablet TAKE ONE TABLET BY MOUTH TWICE A DAY 04/18 completed Not Available Not Available Not Available atorvasta tin 20 mg tablet TAKE ONE TABLET BY MOUTH EVERY DAY active Not Available Not Available No t Available trazodone 50 mg tablet TAKE ONE AND ONE-HALF TABLETS BY MOUTH AT BEDTIME active Not Available Not Available No t Available azithromy mauro 250 mg tablet TAKE 2 TABLETS ON FIRST DAY , THEN 1 TABLET DAILY FOR 4 DAYS 04/18 completed Not Available Not Available Not Available meloxicam 15 mg tablet TAKE ONE TABLET BY MOUTH EVERY DAY AFTER MEAL S) active Not Available Not Available No t Available phenazopy ridine 200 mg tablet 04/16 completed Medicati on ID: [id number] Du ration Value: 2 Brand Name: phenazop yridine Send Method: E-Prescr ibed Sub s Allowed: subs OK Medic ationGen ericName : phenazop yridine Not Available Not Available Not Available lisinopri l 20 mg tablet TAKE 1.5 TABLETS BY MOUTH ONCE DAILY active Not Available Not Available No t Available metronida zole 500 mg tablet TAKE ONE TABLET BY MOUTH EVERY 12 HOURS FOR 7 DAYS active Not Available Not Available No t Available amitripty line 50 mg tablet 04/16 completed Medicati on ID: [id number] Du ration Value: 30 Brand Name: amitript yline Se nd Method: E-Prescr ibed Sub s Allowed: subs OK Medic ationGen ericName : amitript yline Not Available Not Available Not Available oxycodone 15 mg tablet TAKE ONE TABLET BY MOUTH EVERY 6 HOURS NEEDED FOR SEVERE PAIN 04/18 completed Not Available Not Available Not Available amoxicill in 875 mg tablet TAKE ONE TABLET BY MOUTH EVERY 12 HOURS FOR 5 DAYS 04/18 completed Not Available Not Available Not Available hydromorp aiden 2 mg tablet TAKE ONE TABLET BY MOUTH TWICE A DAY NEEDED FOR SEVERE PAIN - DO NOT DRIVE WHILE TAKING THIS MEDICATI ON 04/18 completed Not Available Not Available Not Available nicotine 21 mg/24 hr daily transderm al patch APPLY ONE PATCH TOPICALL Y DAILY TO SKIN active Not Available Not Available No t Available docusate sodium 100 mg capsule TAKE ONE CAPSULE BY MOUTH TWICE A DAY NEEDED FOR CONSTIPA TION active Not Available Not Available No t Available omeprazol e 20 mg capsule,d elayed release TAKE ONE CAPSULE BY MOUTH EVERY DAY active Not Available Not Available No t Available hydrochlo rothiazid e 25 mg tablet TAKE ONE TABLET BY MOUTH EVERY DAY 04/18 completed Not Available Not Available Not Available metoprolo l succinate ER 25 mg tablet,ex tended release 24 hr TAKE ONE TABLET BY MOUTH EVERY DAY active Not Available Not Available No t Available estradiol 0.01% (0.1 mg/gram) vaginal cream USE ONE GRAM VAGINALL Y EVERY EVENING AT BEDTIME. USE FOR 14 DAYS THEN DECREASE TO TWICE WEEKLY 04/18 completed Not Available Not Available Not Available methylpre dnisolone 4 mg tablets in a dose pack TAKE DIRECTED active Not Available Not Available No t Available hydromorp aiden 4 mg tablet TAKE 1 TABLET BY MOUTH EVERY 4 HOURS NEEDED FOR MODERATE PAIN 04/18 completed Not Available Not Available Not Available Preston 5 mg-325 mg tablet 1-2 tablet by mouth 04/18 completed Medicati on ID: [id number] D uration Value: 5 Prescri bed By Name: Maurice Womack nd Name: Preston Se nd Method: E-Prescr ibed Sub s Allowed: subs OK Medic ationGen ericName : Diana Pa dication ID: [id number] D uration Value: 5 Prescri bed By Name: Maurice Womack nd Name: Diana Rahman nd Method: E-Prescr ibed Sub s Allowed: subs OK Medic ationGen ericName : Preston Not Available Not Available Not Available lisinopri l 40 mg tablet 04/18 completed Medicati on ID: [id number] B rand Name: lisinopr il Send Method: E-Prescr ibed Sub s Allowed: subs OK Medic ationGen ericName : lisinopr il Medic ation ID: [id number] B rand Name: lisinopr il Send Method: E-Prescr ibed Sub s Allowed: subs OK Medic ationGen ericName : lisinopr il Not Available Not Available Not Available cefdinir 300 mg capsule 04/16 completed Medicati on ID: [id number] Du ration Value: 10 Brand Name: cefdinir Send Method: E-Prescr ibed Sub s Allowed: subs OK Medic ationGen ericName : cefdinir Not Available Not Available Not Available fluticaso ne propionat e 50 mcg/actua tion nasal spray,shay pension USE 1 SPRAY IN EACH NOSTRIL DAILY NEEDED active Not Available Not Available No t Available ipratropi um bromide 21 mcg (0.03 %) nasal spray Inhale 2 spray into both nostrils three times a day as directed 04/16 completed Medicati on ID: [id number] Br and Name: Atrovent Send Method: E-Prescr ibed Sub s Allowed: subs OK Medic ationGen ericName : Atrovent Not Available Not Available Not Available Ventolin HFA 90 mcg/actua tion aerosol inhaler INHALE TWO PUFFS BY MOUTH EVERY 6 HOURS NEEDED FOR WHEEZING active Not Available Not Available No t Available oxycodone 5 mg tablet 04/18 completed Medicati on ID: [id number] B rand Name: oxycodon e Send Method: E-Prescr ibed Sub s Allowed: subs OK Medic ationGen ericName : oxycodon e Medica tion ID: [id number] B rand Name: oxycodon e Send Method: E-Prescr ibed Sub s Allowed: subs OK Medic ationGen ericName : oxycodon e Not Available Not Available Not Available nicotine (polacril ex) 2 mg buccal lozenge DISSOLVE ONE LOZENGE MOUTH/TH ROAT EVERY 2 HOURS NEEDED FOR SMOKING CESSATIO N. MAX 20 LOZENGES PER DAY. DO NOT CHEW OR SWALLOW WHOLE 04/18 completed Not Available Not Available Not Available cyclobenz aprine 5 mg tablet TAKE ONE TABLET BY MOUTH THREE TIMES A DAY active Not Available Not Available No t Available Premarin 0.625 mg/gram vaginal cream 04/16 completed Medicati on ID: [id number] B rand Name: Premarin Send Method: E-Prescr ibed Sub s Allowed: subs OK Medic ationGen ericName : Premarin Not Available Not Available Not Available nitrofura ntoin monohydra te/macroc rystals 100 mg capsule TAKE ONE CAPSULE BY MOUTH TWICE A DAY FOR 7 DAYS active Not Available Not Available No t Available duloxetin e 60 mg capsule,d elayed release TAKE ONE CAPSULE BY MOUTH TWICE A DAY active Not Available Not Available No t Available Chantix 1 mg tablet 04/16 completed Medicati on ID: [id number] Du ration Value: 30 Brand Name: Aly Send Method: E-Prescr ibed Sub s Allowed: subs OK Medic ationGen ericName : Chantix Not Available Not Available Not Available oxycodone 10 mg tablet TAKE ONE TABLET BY MOUTH EVERY 6 HOURS NEEDED FOR SEVERE PAIN active Not Available Not Available No t Available estradiol 10 mcg vaginal tablet USE 1 TABLET VAGINALL Y AT BEDTIME FOR 2 WEEKS, THEN EVERY ONCE EVERY 2 TO 3 DAYS FOR MAINTENA NCE active Not Available Not Available No t Available Antacid-A ntigas 200 mg-200 mg-20 mg/5 mL oral suspensio n active Not Available Not Available Not Available Wixela Inhub 250 mcg-50 mcg/dose powder for inhalatio n TAKE 1 PUFF TWO TIMES A DAY - RINSE MOUTH AND THROAT AFTER USE active Not Available Not Available No t Available Flowflex COVID-19 Antigen Home Test kit USE DIRECTED PER MANUFACT URER INSTRUCT IONS TO TEST FOR COVID-19 04/18 completed Not Available Not Available Not Available Vitals Date Recorded Body height Body mass index (BMI) Body weight Provider Name and Address Organization Details Last Updated DateTime 03/24/2024 149.86 cm 20.8 kg/m2 01279.01 g [facility], [address], [address], [place] - [facility] 03/24/2024 11:45:04 Date Recorded Body height Body mass index (BMI) Body weight Provider Name and Address Organization Details Last Updated DateTime 03/29/2024 149.86 cm 20.8 kg/m2 44372.01 g Heidy Canseco [facility] 03/29/2024 11:57:56 Date Recorded Body height Body mass index (BMI) Body weight Provider Name and Address Organization Details Last Updated DateTime 04/18/2024 149.86 cm 21.3 kg/m2 39560 g Rafaela Wiley [place] - [facility] 04/18/2024 15:24:13 Social History None recorded. Functional Status None recorded. Mental Status None recorded. Family History Nothing Reported. Medical History No medical history recorded. Gynecological HistoryNo gynecological history recorded. Obstetrics History GPAL:G 0 P 0 0 0 0 Past Encounters Encounter ID Performer Location Encounter Start Date Encounter Closed Date Diagnosis/Indication Diagnosis SNOMED-CT Code Diagnosis ICD10 Code Diagnosis IMO Codes Diagnosis Note [id number] KAYLIN MCKEE PA-C [facility] [address] [place] [address] 03/24/2024 11:14:25 03/24/2024 12:04:44 Benign neoplasm of parotid gland 40999865 D11.0 [id number] KAYLIN MCKEE PA-C [facility] [address] [place] [address] 03/29/2024 11:53:35 03/29/2024 12:07:27 Benign neoplasm of parotid gland 67204082 D11.0 Impacted cerumen 5259670 6 H61.23 Postoperative visit 1836 68556 Z48.89 [id number] AMARA JUAREZ MD [facility] [address] [place] [address] 04/18/2024 15:06:27 04/18/2024 15:50:47 Benign neoplasm of parotid gland 84035909 D11.0 Health Concerns Section Related Observation LastModified by Organization Detai ls LastModified Time None Recorded Concern Status LastModified by Organization Details LastModified Time None Recorded Advance Directives Directive None Recorded Payers Insurance Date Sequence Insurance Name Policy Number Policy Elizondo Covered Member ID Elizondo Member ID Guarantor Name 04/29/2024 1 [facility] - DOS ON OR AFTER 2023 - ONE CARE (MEDICARE REPLACEMENT/ADV ANTAGE - HMO) Rafaela Marie Oswaldo [id number] Rafalea Chacon Notes Date Note Type Note Provider Name and Address Organization Details Recorded Time 03/24/2024 text/html ROS as noted in the HPI 58-year-old female presents for first postop visit status post right parotidectomy on 03/22/[address] Juarez. She is doing well postoperatively. Had approximately 15 cc of drainage in 24 hours. AMARA JUAREZ MD [address] [place] [address], [place], [address], [facility] 03/24/2024 17:23:19 03/29/2024 text/html ROS as noted in the HPI 58-year-old female presents for second postop visit status post right parotidectomy on 03/22/[address] Juarez. She is doing well postoperatively. JULIENNE drain removed at previous visit. Pathology consistent with Warthin tumor. Patient also presents for cerumen removal. She reports foreign body sensation in the ears due to wax build up. No other otologic concerns. AMARA JUAREZ MD [address] [facility], [place], [address], [facility] - [facility] 03/30/2024 09:44:33 04/18/2024 text/html ROS as noted in the HPI 03/22/2024 right parotidectomypath 3.8cm warthin tumor notes a bubble above right eye and feels a lump near right body of jawnumb of right ear AMARA JUAREZ MD [address] [facility], [place], [address], [facility] 04/18/2024 15:42:09 OBGyn Episode No OBEpisode recorded.
--- OUTSIDE RECORDS SUMMARY | 2025-07-20 08:40 | XMS_ITS | Encounter Summary ---
Author Organization [facility] Address [address] [place] [address] Phone Care Team Providers Care Professor In Family Studies Name Role Phone Quang Blake MD Primary Care Provider [phone] Quang Blake MD Primary Care Provider + [phone] Encounter Details Date Type Department Care Team (Late st Contact Info) Description 11/25/2016 Procedure Pass [facility] General Imaging [address] [place] [address] Social History Tobacco Use Types Packs/Day Years Used Date Smoking Tobacco: Every Day Cigarettes Comments:Quit smokin06/14 Comments Unknown Sex and Gender Information Value Date Recorded Sex Assigned at Not on file Legal Sex Female 2:30 PM EST Gender Identity Not on file Sexual Orientation Not on file documented as of this encounter Plan of Treatment Not on file documented as of this encounter Visit Diagnoses Not on filedocumented in this encounter Care Teams Professor In Family Studies Relationship Specialty Start Date End Date Quang Blake MD [address] [place] [address] PCP - General Internal Medicine 12/06/14 10/13/17 Quang Blake MD [address] [place] [address] PCP - General Internal Medicine 10/14/17 documented as of this encounter Additional Source Comments The information contained in this document represents components of the legal health record. It is not the complete legal health record.[facility]
== END 2025-07-19 08:23 | disposition home or self-care (01) ==
LOC: HO.HOSX 08:22
PROVIDERS: Visit Provider Orthopaedic Surgery
DX: Z13.89 Encounter for screening for other disorder (principal)